=== PATIENT | male | born 1990 | race African-American/Black ===

== ENCOUNTER 2019-10-07 23:21 | Emergency (ER) | payer SELFPAY ==
[~2019-10-07] VITALS: Ht 165.1 cm; Wt 81.6 kg
[2019-10-07 23:31] VITALS: BP 166/82
--- NOTE | 2019-10-07 23:38 | PHYS DOC ---
Past Medical History Past Medical History: No Pertinent History Past Surgical History: No Surgical History Additional Information: Nonsmoker Alcohol Use: None Drug Use: None Adult General Chief Complaint Chief Complaint: SORE THROAT HPI HPI 28-year-old male presents with report of sore throat and fever which is been ongoing for the past 3 days. Patient denies known sick contacts. Reports throat has been getting worse. Patient did report some associated nausea which is since resolved. Review of Systems Review of Systems Constitutional: Reports fever and chills Eyes: Denies redness or eye pain HENT: Denies nasal congestion; reports sore throat Respiratory: Denies cough or shortness of breath Cardiovascular: Denies chest pain or palpitations GI: Denies abdominal pain or vomiting; reports nausea : Denies dysuria or hematuria Musculoskeletal: Denies back pain or joint pain Integument: Denies rash or skin lesions Neurologic: Denies headache, focal weakness or sensory changes Complete systems were reviewed and found to be within normal limits, except as documented in this note. Current Medications Current Medications Current Medications Medications (Trade) Dose Ordered Sig/Aubrie Start Time Stop Time Status Last Admin Dose Admin Dexamethasone (Decadron) 10 mg 1X ONCE 10/08/19 00:00 10/07/19 23:59 DC 10/07/19 23:51 10 MG Penicillin G Benzathine (Bicillin L-A) 1,200,000 unit 1X ONCE 10/08/19 00:00 10/07/19 23:59 DC 10/07/19 23:52 1,200,000 UNIT Allergies Allergies Allergies Coded Allergies Type Severity Reaction Last Updated Verified No Known Drug Allergies 10/07/19 No Physical Exam Physical Exam Constitutional: Well developed, well nourished, no acute distress, non-toxic appearance HENT: Normocephalic, atraumatic, oropharynx moist, tonsillar edema, erythema, and exudate noted Eyes: Conjunctiva normal, no discharge Neck: Normal range of motion, no tenderness, supple Cardiovascular: Heart rate normal, regular rhythm Lungs & Thorax: Bilateral breath sounds clear to auscultation, no wheezing Skin: Warm, dry, no erythema, no rash Extremities: No tenderness, ROM intact, no edema Neurologic: Alert and oriented X 3, no focal deficits noted Psychologic: Affect normal, judgement normal Current Patient Data Vital Signs Vital Signs Date Time Temp Pulse Resp B/P (MAP) Pulse Ox O2 Delivery O2 Flow Rate FiO2 10/07/19 23:31 99.5 101 12 166/82 (110) 99 Room Air 99.5 EKG EKG [] Radiology/Procedures Radiology/Procedures [] Course & Med Decision Making Course & Med Decision Making Pertinent Lab studies reviewed. (See chart for details) Patient presents with history of present illness and physical exam concerning for strep pharyngitis. Rapid strep negative. Oral steroid provided. Due to con cern for strep pharyngitis decision to empirically treat with Bicillin injection. Patient stable for discharge with outpatient follow-up with PCP. Discussed findings and plan with patient, who acknowledges understanding and agreement. Dragon Disclaimer Dragon Disclaimer This electronic medical record was generated, in whole or in part, using a voice recognition dictation system. Departure Departure Impression: Primary Impression: Strep pharyngitis Disposition: 01 HOME, SELF-CARE Condition: STABLE Referrals: NO PCP (PCP) Patient Instructions: Strep Throat, [id number] Additional Instructions: You have been given a 1 time dose of a very powerful antibiotic. You DO NOT require further antibiotics. Use over the counter Tylenol and Ibuprofen for pain or discomfort. YOHANNES AARON DO Oct 07, 2019 23:38
[2019-10-08] MEDS ORDERED: PENICILLIN G BENZATHINE LA 1,200,000 UNIT/2 ML DISP.SYRIN. IM ONE
[2019-10-08] MEDS ORDERED: DEXAMETHASONE 4 MG TABLET PO ONE
== END 2019-10-07 23:58 | disposition home or self-care (01) ==
LOC: ER 23:21
DX: J02.0 Streptococcal pharyngitis (principal)
CPT/HCPCS: 87070; 87880; 96372; 99283; J0561; J8540